=== PATIENT | female | born 1955 | race Native Hawaiian/Other Pacific Islander ===

== ENCOUNTER 2020-05-22 09:12 | Emergency (ER) | payer OTHER ==
[~2020-05-22] VITALS: Ht 162.6 cm; Wt 49.0 kg
[2020-05-22 09:26] VITALS: TEMP 98.5
[2020-05-22 10:24] LABS: PLATELET COUNT 251 K/uL (152-353)
[2020-05-22 11:05] LABS: POTASSIUM 3.6 mmol/L (3.6-5.2)
[2020-05-22 13:36] VITALS: BP 153/63
== END 2020-05-22 14:31 | disposition home or self-care (01) ==
LOC: ED 09:12
PROVIDERS: Family Medicine
DX: R26.89 Other abnormalities of gait and mobility (principal); G89.4 Chronic pain syndrome; W10.8XXA Fall (on) (from) other stairs and steps, initial encounter; Y92.098 Other place in other non-institutional residence as the place of occurrence of the external cause
CPT/HCPCS: 80053; 81000; 85027; 96372; 99283; J1885